=== PATIENT | male | born 2000 | race Two or more races ===

== ENCOUNTER 2020-01-25 16:17 | Inpatient (IN) | payer OTHER ==
[2020-01-25] MEDS: Lactated Ringers 1,000 ML IV SCH (17:20)
[2020-01-25] MEDS ORDERED: Ondansetron 4 MG/2 ML SDV IVPUSH ONE (18:00)
[2020-01-25] MEDS ORDERED: Ketorolac 30 MG/ML SDV IVPUSH ONE (18:00)
[2020-01-25] MEDS ORDERED: Citric Acid/Sodium Citrate Solution 30 ML Cup PO ONE (18:00)
[2020-01-25] MEDS ORDERED: Dexmedetomidine 200 MCG/2 ML SDV IV ONE (18:00)
[2020-01-25] MEDS ORDERED: Rocuronium 50 MG/5 ML Vial IV ONE (18:00)
[2020-01-25] MEDS ORDERED: fentaNYL 100 MCG/2 ML SDV IV ONE (18:00)
[2020-01-25] MEDS ORDERED: Glycopyrrolate 0.2 MG/ML 5 ML MDV IV ONE (18:00)
[2020-01-25] MEDS ORDERED: Succinylcholine 200 MG/10 ML MDV IV ONE (18:00)
[2020-01-25] MEDS ORDERED: Midazolam 1 MG/ML 2 ML SDV IV ONE (18:00)
[2020-01-25] MEDS ORDERED: Propofol 200 MG/20 ML SDV IV ONE (18:00)
[2020-01-25] MEDS ORDERED: Neostigmine Methylsulfate 10 MG/10 ML MDV IVPUSH ONE (18:00)
[2020-01-25] MEDS ORDERED: Lactated Ringers 1,000 ML IV ONE (18:00)
[2020-01-25] MEDS ORDERED: Bupivacaine 0.5% 30 ML SDV INJECT ONE (18:09)
[2020-01-25] MEDS ORDERED: Lidocaine 1% with EPINEPHrine 1:100,000 20 ML MDV INJECT ONE (18:10)
[2020-01-25] MEDS ORDERED: Ondansetron 4 MG/2 ML SDV IVPUSH PRN (19:08)
--- NOTE | 2020-01-25 19:23 | PCM.OPNOTE ---
- General Post-Op/Procedure Note Date of Surgery/Procedure: 01/25/20 Operative Procedure(s): lap appendectomy Findings: suppurative appendix Pre Op Diagnosis: acute appendicitis with localized peritonitis Post-Op Diagnosis: Same Anesthesia Technique: General ET Tube, Local (7 ml 1 % lido with epi/0.5% buvipicaine) Primary Surgeon: Iker De La O Anesthesia Provider: Trisha Walls Pathology: appendix Fluid Replacement, Intraop: 1,200 EBL in mLs: 25 Complications: some spillage of fecal material from the appendix. Condition: Good Free Text/Narrative:: see dictation #[id number]
[2020-01-25] MEDS: Ketorolac 30 MG/ML SDV IVPUSH SCH (20:20)
[2020-01-25] MEDS: Morphine 2 MG/ML SYRINGE IVPUSH PRN ×2 (20:50→22:44)
[2020-01-25] MEDS: Acetaminophen/HYDROcodone 325-5 MG Tab PO PRN (21:19)
[2020-01-26] MEDS: Morphine 2 MG/ML SYRINGE IVPUSH PRN ×7 (00:04→10:41)
[2020-01-26] MEDS: Ketorolac 30 MG/ML SDV IVPUSH SCH ×4 (01:22→19:03)
[2020-01-26] MEDS: Lactated Ringers 1,000 ML IV SCH ×3 (02:57→19:41)
[2020-01-26] MEDS: cefOXitin 1 GM Vial IVPUSH SCH ×4 (05:18→23:48)
--- NOTE | 2020-01-26 07:16 | OR ---
DATE OF OPERATION: 01/25/2020 SURGEON: Iker De La O MD PROCEDURE PERFORMED: Laparoscopic appendectomy. PREOPERATIVE DIAGNOSIS: Acute appendicitis with localized peritonitis. POSTOPERATIVE DIAGNOSIS: Acute appendicitis with localized peritonitis. INDICATIONS FOR PROCEDURE: This is a 19-year-old white male who is a student at the [employer], who apparently has sustained or experienced some abdominal pain in his lower abdomen for the past 5 days. Today, it got progressively worse to the point that he presented to the clinic. He was noted to have tenderness in the lower abdomen with rebound located over the right lower quadrant. He also had a mild leukocytosis of 12,000. On exam, it was felt that his findings were consistent with an acute appendicitis. He, therefore, was offered and accepted a laparoscopic appendectomy. INTRAOPERATIVE FINDINGS: A 7 mL of our local mixture was used. This was a 1:1 mixture of 1% lidocaine with epinephrine 0.5% bupivacaine. A suppurative appendix was noted with what appeared to be a fecalith located in the proximal area of the appendix. There was some mild spillage of the contents of the appendix as well during the case. This was all successfully irrigated. DESCRIPTION OF PROCEDURE: After an excellent general anesthetic was administered via endotracheal tube, the patient was prepped and draped in the usual sterile manner. Our local was used first infiltrate the area around the patient's umbilicus. A small vertical midline incision was then carried out. The midline fascia was exposed. Two stay sutures of 0 Vicryl were placed on either side of the midline fascia, which was then elevated. The midline was incised, and the abdominal cavity was entered. After digital palpation to ensure that there were no adhesions, a 10.5 mm Vinnie trocar was inserted into the patient's abdomen. The patient's abdomen was then insufflated to 15 mmHg, using carbon dioxide, and under direct visualization two 5 mm ports were placed one in the right lower quadrant at the proximal level of the anterior axillary line and one in the midline approximately 3 cm below the periumbilical port. This was done via a following technique; a full thickness infiltration of local was carried out. A stab incision was made through the skin, and the trocars were inserted into the abdomen. We were able to grab the cecum and mobilize the appendix, which was lying in the right colic gutter. It was markedly inflamed and had a diameter roughly of approximately 2 cm. In grasping the appendix at the base, there was a small rent made in the appendix and some liquid stool did escape. This was aspirated, and then there was an avulsion of what appeared to be a fecalith as well. We were able to grab and obtain the majority of this at this stage. A rent was then made in the mesoappendix. An Endo-BLANCA was inserted and a 3.5 mm 45 mm load was then fired across the base of the appendix. The mesoappendix was also divided using a similar load, and the appendix was then delivered into a specimen bag and delivered out through the periumbilical port. The area was irrigated and the remaining obvious contamination was obtained. On inspecting the staple line along the mesoappendiceal staple line, there were several small bleeding points, one at the distal most portion of the mesoappendix going from medial to lateral. Several clips were applied. Then on further inspection, there were several other points that required clip application, which resulted in cessation of the very slight oozing that was noted. On inspection of the staple line with the colon, at the base of the appendix, on one edge there was some slight oozing. We were able to place a suture line that ran parallel and did not cross the end of the sutures, and this basically occluded the edge and resulted in cessation of the slight oozing that was there as well. This was placed running parallel to the staple line to avoid any complications or necrosis of the staple line in its healing, and potential leak. A grand total of 3 L of LR were then used to irrigate the right colic gutter as well as the area lateral to the right hepatic lobe and also the pelvis received a full liter of irrigation as well of the total of 3 L. Careful inspection revealed no further evidence of any gross fecal contamination and our irrigant was clear by the second liter. The trocars were then removed under direct visualization, and the patient was flattened out. The [id number] 0 Vicryl was used to close the periumbilical port site. Additional figure-of- eights suture was placed on the superior aspect to ensure complete closure of our fascia. The skin was then closed with interrupted 4-0 Vicryl for the two 5 mm ports and a running subcu 4-0 Vicryl for the periumbilical port. Steri- Strips were applied. Needle, sponge, and instrument counts were reported as correct. The patient received approximately 1200 mL of crystal, and we estimated less than 25 mL of blood loss. /[id number] /MODL
[2020-01-26] MEDS ORDERED: Lactated Ringers 1,000 ML IV SCH (07:30)
--- NOTE | 2020-01-26 07:45 | PCM.SURGPN ---
- General Info Date of Service: 01/26/20 POD#: 1 Functional Status: Reports: Ambulating, Urinating ( ), Other (notes pain ) - Review of Systems General: Denies: Fever Pulmonary: Reports: No Symptoms Cardiovascular: Reports: No Symptoms Gastrointestinal: Reports: Abdominal Pain Skin: Reports: No Symptoms - Patient Data Vitals - Most Recent: Last Vital Signs Temp 98.6 F 01/26/20 04:00 Pulse 60 01/26/20 04:00 Resp 16 01/26/20 04:00 BP 94/46 L 01/26/20 04:00 Pulse Ox 98 01/26/20 04:00 Weight - Most Recent: 77.111 kg I&O - Last 24 Hours: Intake & Output 01/25/20 01/26/20 01/26/20 22:59 06:59 14:59 Intake Total 1200 1260 Output Total 550 Balance 1200 710 Lab Results Last 24 Hrs: Laboratory Results - last 24 hr 01/25/20 Range/Units 16:35 SARS-CoV-2 RNA (PAULINE) Negative (NEGATIVE) Med Orders - Current: Current Medications Hydrocodone Bitart/Acetaminophen ([place] 325-5 Mg) 2 tab PO Q4H PRN PRN Reason: Pain (moderate 4-6) Last Admin: 01/25/20 21:19 Dose: 2 tab Documented by: Cefoxitin Sodium (Mefoxin) 1 gm IVPUSH Q6H [facility] Last Admin: 01/26/20 05:18 Dose: 1 gm Documented by: Lactated Ringer's (Ringers, Lactated) 1,000 mls @ 125 mls/hr IV ASDIRECTED [facility] Last Admin: 01/26/20 02:57 Dose: 125 mls/hr Documented by: Lactated Ringer's (Ringers, Lactated) 1,000 mls @ 999 mls/hr IV ASDIRECTED [facility] Ketorolac Tromethamine (Toradol) 30 mg IVPUSH Q6H [facility] Stop: 01/30/20 19:11 Last Admin: 01/26/20 07:13 Dose: 30 mg Documented by: Morphine Sulfate (Morphine) 2 mg IVPUSH Q1H PRN PRN Reason: Pain (severe 7-10) Last Admin: 01/26/20 06:48 Dose: 2 mg Documented by: Ondansetron HCl (Zofran) 4 mg IVPUSH Q6H PRN PRN Reason: Nausea/Vomiting Discontinued Medications Bupivacaine HCl (Marcaine 0.5%) 10 ml INJECT .STK-MED ONE Stop: 01/25/20 18:10 Last Admin: 01/25/20 18:09 Dose: 10 ml Documented by: Cefoxitin Sodium 1 gm/ Sodium (Chloride) 50 mls @ 100 mls/hr IVPUSH ONETIME ONE Stop: 01/25/20 17:48 Last Admin: 01/25/20 17:26 Dose: 100 mls/hr Documented by: Cefoxitin Sodium 1 gm/ Sodium (Chloride) 50 mls @ 100 mls/hr IVPUSH Q6H [facility] Last Admin: 01/26/20 05:03 Dose: 100 mls/hr Documented by: Lidocaine/Epinephrine (Xylocaine 1% With Epinephrine 1:100,000) 10 ml INJECT .STK-MED ONE Stop: 01/25/20 18:11 Last Admin: 01/25/20 18:10 Dose: 10 ml Documented by: - Exam Wound/Incisions: Dressing Dry and Intact General: Alert, Oriented, Mild Distress Lungs: Clear to Auscultation, Normal Respiratory Effort Cardiovascular: Regular Rate, Regular Rhythm GI/Abdominal Exam: Normal Bowel Sounds, Soft, Tender Sepsis Event Note - Focused Exam Vital Signs: Vital Signs Temp Pulse Resp BP Pulse Ox Pulse Ox 01/26/20 04:00 98.6 F 60 16 94/46 L 98 01/26/20 01:52 100 01/26/20 01:30 98.9 F 88 16 117/51 L 100 01/26/20 00:00 98.3 F 88 16 106/49 L 96 01/25/20 22:00 69 16 93/43 L 97 01/25/20 21:30 68 16 90/36 L 98 01/25/20 21:00 66 16 94/40 L 98 01/25/20 20:45 62 16 113/57 L 100 01/25/20 20:30 55 L 16 108/51 L 99 01/25/20 20:15 53 L 16 115/56 L 99 01/25/20 20:00 51 L 16 126/60 100 01/25/20 19:45 98.2 F 51 L 16 123/62 99 01/25/20 19:37 50 L 12 112/56 L 100 - Problem List & Annotations (1) Acute appendicitis with localized peritonitis SNOMED Code(s): 905017664 Code(s): K35.30 - ACUTE APPENDICITIS WITH LOC PERITONITIS, W/O PERF OR GANGR Status: Acute Current Visit: Yes Qualifiers: Appendicitis gangrene presence: without gangrene Appendicitis perforation presence: unspecified whether perforation present Appendicitis abscess presence: without abscess Qualified Code(s): K35.30 - Acute appendicitis with localized peritonitis, without perforation or gangrene - Problem List Review Problem List Initiated/Reviewed/Updated: Yes - My Orders Last 24 Hours: Active Orders 24 hr Category Date Time Status Patient Status [ADT] Routine ADT 01/25/20 16:41 Active Ambulate [RC] .TID Care 01/25/20 19:08 Active Head of Bed Elevation [RC] ASDIRECTED Care 01/25/20 19:08 Active Oxygen Therapy [RC] PRN Care 01/25/20 19:08 Active RT Incentive Spirometry [RC] Q2HWA Care 01/25/20 19:08 Active Vital Signs [RC] Q4HR Care 01/25/20 19:08 Active Clear Liquid Diet [DIET] Diet 01/26/20 Breakfast Ordered CBC WITH AUTO DIFF [HEME] AM Lab 01/26/20 05:11 Ordered Acetaminophen/HYDROcodone [[place] 325-5 MG] Med 01/25/20 19:08 Active 2 tab PO Q4H PRN Ketorolac [Toradol] Med 01/25/20 19:15 Active 30 mg IVPUSH Q6H Lactated Ringers [Ringers, Lactated] 1,000 ml Med 01/25/20 16:45 Active IV ASDIRECTED Lactated Ringers [Ringers, Lactated] 1,000 ml Med 01/26/20 07:30 Ordered IV ASDIRECTED Morphine Med 01/25/20 19:08 Active 2 mg IVPUSH Q1H PRN Ondansetron [Zofran] Med 01/25/20 19:08 Active 4 mg IVPUSH Q6H PRN cefOXitin [Mefoxin] Med 01/26/20 05:00 Active 1 gm IVPUSH Q6H Resuscitation Status Routine Resus Stat 01/25/20 19:08 Ordered Medication Orders Hydrocodone Bitart/Acetaminophen ([place] 325-5 Mg) 2 tab PO Q4H PRN PRN Reason: Pain (moderate 4-6) Last Admin: 01/25/20 21:19 Dose: 2 tab Documented by: GLORIA Cefoxitin Sodium (Mefoxin) 1 gm IVPUSH Q6H [facility] Last Admin: 01/26/20 05:18 Dose: 1 gm Documented by: AREN Lactated Ringer's (Ringers, Lactated) 1,000 mls @ 125 mls/hr IV ASDIRECTED [facility] Last Admin: 01/26/20 02:57 Dose: 125 mls/hr Documented by: Infusion: 01/26/20 02:15 Dose: 125 mls/hr Documented by: Infusion: 01/25/20 19:45 Dose: 125 mls/hr Documented by: Admin: 01/25/20 17:20 Dose: 30 mls/hr Documented by: GLORIA Lactated Ringer's (Ringers, Lactated) 1,000 mls @ 999 mls/hr IV ASDIRECTED [facility] Ketorolac Tromethamine (Toradol) 30 mg IVPUSH Q6H [facility] Stop: 01/30/20 19:11 Last Admin: 01/26/20 07:13 Dose: 30 mg Documented by: Admin: 01/26/20 01:22 Dose: 30 mg Documented by: Admin: 01/25/20 20:20 Dose: Not Given Documented by: GLORIA Morphine Sulfate (Morphine) 2 mg IVPUSH Q1H PRN PRN Reason: Pain (severe 7-10) Last Admin: 01/26/20 06:48 Dose: 2 mg Documented by: Admin: 01/26/20 05:28 Dose: 2 mg Documented by: Admin: 01/26/20 04:15 Dose: 2 mg Documented by: Admin: 01/26/20 02:53 Dose: 2 mg Documented by: Admin: 01/26/20 01:15 Dose: 2 mg Documented by: Admin: 01/26/20 00:04 Dose: 2 mg Documented by: Admin: 01/25/20 22:44 Dose: 2 mg Documented by: Admin: 01/25/20 20:50 Dose: 2 mg Documented by: GLORIA Ondansetron HCl (Zofran) 4 mg IVPUSH Q6H PRN PRN Reason: Nausea/Vomiting - Assessment Assessment (Free Text/Narrative):: for 12 post op exam is unremarkable. - Plan Plan (Free Text/Narrative):: will give additional bolus ambulate. await cbc results.
[2020-01-26] MEDS: Acetaminophen/HYDROcodone 325-5 MG Tab PO PRN ×3 (13:52→23:50)
--- NOTE | 2020-01-26 16:25 | PCM.SN.2 ---
- Free Text/Narrative Note: still c/o of some abd pain. objective abd soft NO rebound, guarding incisional tenderness. Vitals are stable. clinically unremarkable exam plan pt encouraged to move and push po. case discussed with his mother.
[2020-01-26] MEDS ORDERED: Lidocaine 2% Jelly 30 ML Tube MUCMEM STA (22:27)
[2020-01-26] MEDS ORDERED: Bisacodyl 10 MG Supp RECTAL ONE (22:27)
--- NOTE | 2020-01-26 22:33 | PCM.SN.2 ---
- Free Text/Narrative Note: Due to patient discomfort we did proceed with a CT scan of abd and pelvis with oral contrast. CT scan was reviewed by me and discussed with [facility] radiologist. There is no evidence of any surgical issues and the over all appearance is that of a post op lap appendectomy. Of note is a distended bladder as well as a fair amount of stool in the cecum. This has the appearance of a neurogenic bladder. Plan a cantrell, ducolax suppository. Have talked with his mother as well as the patient the need of the cantrell.
[2020-01-26] MEDS ORDERED: Lidocaine 2% HCl 6 ML JEL.PF.APP ONE ×2 (22:48→22:52)
[2020-01-27] MEDS: Ketorolac 30 MG/ML SDV IVPUSH SCH ×2 (01:13→07:30)
[2020-01-27] MEDS: Lactated Ringers 1,000 ML IV SCH (03:44)
[2020-01-27] MEDS: cefOXitin 1 GM Vial IVPUSH SCH (05:47)
[2020-01-27] MEDS ORDERED: Sodium Phosphate,Monobasic/Sodium Phosphate,Dibasic Enema 133 ML Bottle RECTAL ONE (09:23)
--- NOTE | 2020-01-27 09:31 | PCM.SURGPN ---
- General Info Date of Service: 01/27/20 POD#: 2 Functional Status: Reports: Pain Controlled, Tolerating Diet, Urinating (cantrell in place for markedly distended bladder on CT scan ) - Review of Systems General: Reports: Appetite Pulmonary: Reports: No Symptoms Cardiovascular: Reports: No Symptoms Gastrointestinal: Reports: Abdominal Pain (markedly improved. ) Skin: Reports: No Symptoms - Patient Data Vitals - Most Recent: Last Vital Signs Temp 98.2 F 01/27/20 04:00 Pulse 68 01/27/20 04:00 Resp 16 01/27/20 04:00 BP 116/47 L 01/27/20 04:00 Pulse Ox 96 01/27/20 04:00 Weight - Most Recent: 77.111 kg I&O - Last 24 Hours: Intake & Output 01/26/20 01/27/20 01/27/20 22:59 06:59 14:59 Intake Total 1978 1010 Output Total 1600 900 Balance 378 110 Lab Results Last 24 Hrs: Laboratory Results - last 24 hr 01/27/20 Range/Units 07:00 WBC 9.4 (3.2-10.1) x10-3/uL RBC 4.02 (3.90-5.90) x10(6)uL Hgb 12.5 L (12.9-17.7) g/dL Hct 37.1 L (38.3-50.1) % MCV 92.4 (80.8-98.7) fL MCH 31.0 (27.0-33.3) pg MCHC 33.5 (28.7-35.3) g/dL RDW 12.8 (12.4-15.0) % Plt Count 226 (117-477) x10(3)uL MPV 7.2 (6.7-11.0) fL Neut % (Auto) 75.7 H (40.3-71.8) % Lymph % (Auto) 13.7 L (15.8-45.3) % Dawson % (Auto) 9.4 (5.5-15.2) % Eos % (Auto) 0.9 (0.1-6.8) % Baso % (Auto) 0.3 (0.3-3.8) % Neut # (Auto) 7.1 H (1.7-6.9) x10-3/uL Lymph # (Auto) 1.3 (0.5-4.5) x10-3/uL Dawson # (Auto) 0.9 (0.0-1.2) x10-3/uL Eos # (Auto) 0.1 (0.0-0.6) x10-3/uL Baso # (Auto) 0.0 (0.0-0.3) x10-3/uL Med Orders - Current: Current Medications Hydrocodone Bitart/Acetaminophen ([place] 325-5 Mg) 2 tab PO Q4H PRN PRN Reason: Pain (moderate 4-6) Last Admin: 01/26/20 23:50 Dose: 2 tab Documented by: Celecoxib (Celebrex) 200 mg PO BID [facility] Hydroxyzine Pamoate (Vistaril) 50 mg PO Q6H PRN PRN Reason: Abdominal Pain Last Admin: 01/26/20 19:53 Dose: 50 mg Documented by: Ondansetron HCl (Zofran) 4 mg IVPUSH Q6H PRN PRN Reason: Nausea/Vomiting Last Admin: 01/26/20 10:49 Dose: 4 mg Documented by: Sodium Biphosphate/Sodium Phosphate (Fleet Enema) 133 ml RECTAL ONETIME ONE Stop: 01/27/20 09:24 Discontinued Medications Bisacodyl (Dulcolax) 10 mg RECTAL ONETIME ONE Stop: 01/26/20 22:28 Last Admin: 01/26/20 22:56 Dose: 10 mg Documented by: Bupivacaine HCl (Marcaine 0.5%) 10 ml INJECT .STK-MED ONE Stop: 01/25/20 18:10 Last Admin: 01/25/20 18:09 Dose: 10 ml Documented by: Cefoxitin Sodium (Mefoxin) 1 gm IVPUSH Q6H [facility] Last Admin: 01/27/20 05:47 Dose: 1 gm Documented by: Lactated Ringer's (Ringers, Lactated) 1,000 mls @ 125 mls/hr IV ASDIRECTED [facility] Last Admin: 01/27/20 03:44 Dose: 125 mls/hr Documented by: Cefoxitin Sodium 1 gm/ Sodium (Chloride) 50 mls @ 100 mls/hr IVPUSH ONETIME ONE Stop: 01/25/20 17:48 Last Admin: 01/25/20 17:26 Dose: 100 mls/hr Documented by: Cefoxitin Sodium 1 gm/ Sodium (Chloride) 50 mls @ 100 mls/hr IVPUSH Q6H [facility] Last Admin: 01/26/20 07:53 Dose: Not Given Documented by: Lactated Ringer's (Ringers, Lactated) 1,000 mls @ 999 mls/hr IV ASDIRECTED [facility] Last Admin: 01/26/20 07:43 Dose: 999 mls/hr Documented by: Ketorolac Tromethamine (Toradol) 30 mg IVPUSH Q6H [facility] Stop: 01/30/20 19:11 Last Admin: 01/27/20 07:30 Dose: 30 mg Documented by: Lidocaine HCl (Xylocaine 2% Jelly) 6 ml MUCMEM NOW STA Stop: 01/26/20 22:28 Last Admin: 01/26/20 22:57 Dose: Not Given Documented by: Lidocaine HCl (Glydo) Confirm Administered Dose 6 ml .ROUTE .STK-MED ONE Stop: 01/26/20 22:49 Last Admin: 01/26/20 22:56 Dose: Not Given Documented by: Lidocaine HCl (Glydo) 6 ml .XX ONETIME ONE Stop: 01/26/20 22:53 Last Admin: 01/26/20 23:35 Dose: 6 ml Documented by: Lidocaine/Epinephrine (Xylocaine 1% With Epinephrine 1:100,000) 10 ml INJECT .STK-MED ONE Stop: 01/25/20 18:11 Last Admin: 01/25/20 18:10 Dose: 10 ml Documented by: Morphine Sulfate (Morphine) 2 mg IVPUSH Q1H PRN PRN Reason: Pain (severe 7-10) Last Admin: 01/26/20 10:41 Dose: 2 mg Documented by: - Exam Wound/Incisions: Healing Well, Dressing Dry and Intact General: Alert, Oriented, Cooperative, No Acute Distress Lungs: Clear to Auscultation, Normal Respiratory Effort Cardiovascular: Regular Rate, Regular Rhythm GI/Abdominal Exam: Normal Bowel Sounds, Soft, No Distention, Tender (over incisions much better exam than yesterday ) Skin: Warm, Dry, Intact Sepsis Event Note - Focused Exam Vital Signs: Vital Signs Temp Pulse Resp BP Pulse Ox 01/27/20 04:00 98.2 F 68 16 116/47 L 96 01/27/20 00:00 98.3 F 69 16 110/50 L 96 - Problem List & Annotations (1) Acute appendicitis with localized peritonitis SNOMED Code(s): 597396647 Code(s): K35.30 - ACUTE APPENDICITIS WITH LOC PERITONITIS, W/O PERF OR GANGR Status: Resolved Current Visit: Yes Qualifiers: Appendicitis gangrene presence: without gangrene Appendicitis perforation presence: unspecified whether perforation present Appendicitis abscess presence: without abscess Qualified Code(s): K35.30 - Acute appendicitis with localized peritonitis, without perforation or gangrene (2) Postoperative urinary retention SNOMED Code(s): 518950824 Code(s): N99.89 - OTH POSTPROCEDURAL COMPLICATIONS AND DISORDERS OF SYS; R33.8 - OTHER RETENTION OF URINE Status: Acute Current Visit: Yes - Problem List Review Problem List Initiated/Reviewed/Updated: Yes - My Orders Last 24 Hours: Active Orders 24 hr Category Date Time Status Insert Cantrell Catheter [Insert Urinary Catheter] [OM.PC] Care 01/26/20 22:30 Ordered Q24H Urinary Catheter Assessment [RC] QSHIFT Care 01/26/20 22:27 Active Regular Diet [DIET] Diet 01/27/20 Lunch Ordered Abdomen Pelvis wo Cont [CT] Routine Exams 01/26/20 21:14 Taken Celecoxib [CeleBREX] Med 01/27/20 09:30 Ordered 200 mg PO BID Na Phos,M-B/Na Phos,DI-B [Fleet Enema] Med 01/27/20 09:23 Once 133 ml RECTAL ONETIME ONE hydrOXYzine pamoate [Vistaril] Med 01/26/20 13:19 Active 50 mg PO Q6H PRN Convert IV to Saline Lock [OM.PC] Routine Oth 01/27/20 09:20 Ordered Medication Orders Hydrocodone Bitart/Acetaminophen ([place] 325-5 Mg) 2 tab PO Q4H PRN PRN Reason: Pain (moderate 4-6) Last Admin: 01/26/20 23:50 Dose: 2 tab Documented by: Admin: 01/26/20 19:52 Dose: 2 tab Documented by: Admin: 01/26/20 13:52 Dose: 2 tab Documented by: Admin: 01/25/20 21:19 Dose: 2 tab Documented by: GLORIA Celecoxib (Celebrex) 200 mg PO BID [facility] Hydroxyzine Pamoate (Vistaril) 50 mg PO Q6H PRN PRN Reason: Abdominal Pain Last Admin: 01/26/20 19:53 Dose: 50 mg Documented by: Admin: 01/26/20 13:52 Dose: 50 mg Documented by: KING Ondansetron HCl (Zofran) 4 mg IVPUSH Q6H PRN PRN Reason: Nausea/Vomiting Last Admin: 01/26/20 10:49 Dose: 4 mg Documented by: KING Sodium Biphosphate/Sodium Phosphate (Fleet Enema) 133 ml RECTAL ONETIME ONE Stop: 01/27/20 09:24 - Assessment Assessment (Free Text/Narrative):: Overall markedly better exam - Plan Plan (Free Text/Narrative):: saline lock iv's po pain meds will d/c toradol and go to celebrex. stop antibiotics as WBC is normal continue cantrell.
[2020-01-27] MEDS: Celecoxib 200 MG Cap PO SCH ×2 (10:11→22:43)
[2020-01-27] MEDS: Acetaminophen/HYDROcodone 325-5 MG Tab PO PRN ×2 (17:51→23:49)
[2020-01-28] MEDS: Acetaminophen/HYDROcodone 325-5 MG Tab PO PRN ×2 (05:55→10:31)
--- NOTE | 2020-01-28 09:10 | PCM.DCSUM1 ---
Discharge Summary - Discharge Data Discharge Date: 01/28/20 Discharge Disposition: Home, Self-Care 01 Condition: Good - Referral to Home Health Primary Care Physician: PCP None - Discharge Diagnosis/Problem(s) (1) Acute appendicitis with localized peritonitis SNOMED Code(s): 225198820 ICD Code: K35.30 - ACUTE APPENDICITIS WITH LOC PERITONITIS, W/O PERF OR GANGR Status: Resolved Current Visit: Yes Qualifiers: Appendicitis gangrene presence: without gangrene Appendicitis perforation presence: unspecified whether perforation present Appendicitis abscess presence: without abscess Qualified Code(s): K35.30 - Acute appendicitis with localized peritonitis, without perforation or gangrene (2) Postoperative urinary retention SNOMED Code(s): 601514475 ICD Code: N99.89 - OTH POSTPROCEDURAL COMPLICATIONS AND DISORDERS OF SYS; R33.8 - OTHER RETENTION OF URINE Status: Resolved Current Visit: Yes - Patient Summary/Data Operative Procedure(s) Performed: lap appendectomy Hospital Course: Pt underwent a lap appendectomy with removal of an inflamed appendix, with apparent fecalith. His post op course was notable for pt's perception of pain. This affected post operative ambulation. His pain was addressed with morphine, and iv toradol, this was converted to [place], vistaril as well as toradol on day one. Ambulation was encourage and he did so reluctantly. Vitals during this time were stable and he remained afebrile. Nursing continued to encourage ambulation through the day and did work with him. CT scan with oral contrast was obtained the evening of POD #1 to ensure no significant intrabdominal issue were present. Findings were consistent with post op state. He did have a significant amount of stool in the cecum, as well as a markedly distended bladder. Cantrell was placed with over a liter output noted. This was after a urination of 600 ml. The following morning POD#2. He was admitted due to the retention as he is a college student that lives [place] from the hospital. He did have a bowel movement during this time. IV was saline locked. Regular diet was started and he tolerated this. During these two days mother has been communicated with by myself and the nursing staff. The morning of POD#3 the cantrell has been d/cd. He will be discharged after he demonstrates the ability to urinate. - Patient Instructions Diet: Usual Diet as Tolerated Activity: No Lifting Over 25 Pounds (for 3 wks ) Driving: Do Not Drive (for 7 days ) Showering/Bathing: May Shower Wound/Incision, Other: allow steri strips to fall off Notify Provider of: Fever, Increased Pain - Discharge Plan *PRESCRIPTION DRUG MONITORING PROGRAM REVIEWED*: No *COPY OF PRESCRIPTION DRUG MONITORING REPORT IN PATIENT NATHAN: No Prescriptions/Med Rec: Celecoxib [CeleBREX] 200 mg PO BID #14 cap Acetaminophen/HYDROcodone [[place] 325-5 MG] 1 - 2 tab PO Q6H PRN #20 tab PRN Reason: Pain Home Medications: Home Meds cephALEXin [Cephalexin] 500 mg PO BID 01/25/20 [History] Acetaminophen/HYDROcodone [[place] 325-5 MG] 1 - 2 tab PO Q6H PRN #20 tab 01/27/20 [Rx] Celecoxib [CeleBREX] 200 mg PO BID #14 cap 01/27/20 [Rx] Referrals: Iker De La O MD [Physician] - (follow up in 7-10 days with me or with your local doctor for a post op check. ) - Discharge Summary/Plan Comment DC Time >30 min.: No - Patient Data Vitals - Most Recent: Last Vital Signs Temp 98.1 F 01/28/20 06:00 Pulse 59 L 01/28/20 06:00 Resp 16 01/28/20 06:00 BP 124/64 01/28/20 06:00 Pulse Ox 100 01/28/20 06:00 Weight - Most Recent: 77.111 kg I&O - Last 24 hours: Intake & Output 01/27/20 01/28/20 01/28/20 22:59 06:59 14:59 Intake Total 600 400 Output Total 950 650 Balance -350 -250 Med Orders - Current: Current Medications Hydrocodone Bitart/Acetaminophen ([place] 325-5 Mg) 2 tab PO Q4H PRN PRN Reason: Pain (moderate 4-6) Last Admin: 01/28/20 05:55 Dose: 2 tab Documented by: Celecoxib (Celebrex) 200 mg PO BID JEREMY Last Admin: 01/27/20 22:43 Dose: 200 mg Documented by: Hydroxyzine Pamoate (Vistaril) 50 mg PO Q6H PRN PRN Reason: Abdominal Pain Last Admin: 01/26/20 19:53 Dose: 50 mg Documented by: Ondansetron HCl (Zofran) 4 mg IVPUSH Q6H PRN PRN Reason: Nausea/Vomiting Last Admin: 01/26/20 10:49 Dose: 4 mg Documented by: Discontinued Medications Bisacodyl (Dulcolax) 10 mg RECTAL ONETIME ONE Stop: 01/26/20 22:28 Last Admin: 01/26/20 22:56 Dose: 10 mg Documented by: Bupivacaine HCl (Marcaine 0.5%) 10 ml INJECT .STK-MED ONE Stop: 01/25/20 18:10 Last Admin: 01/25/20 18:09 Dose: 10 ml Documented by: Cefoxitin Sodium (Mefoxin) 1 gm IVPUSH Q6H [facility] Last Admin: 01/27/20 05:47 Dose: 1 gm Documented by: Lactated Ringer's (Ringers, Lactated) 1,000 mls @ 125 mls/hr IV ASDIRECTED [facility] Last Admin: 01/27/20 03:44 Dose: 125 mls/hr Documented by: Cefoxitin Sodium 1 gm/ Sodium (Chloride) 50 mls @ 100 mls/hr IVPUSH ONETIME ONE Stop: 01/25/20 17:48 Last Admin: 01/25/20 17:26 Dose: 100 mls/hr Documented by: Cefoxitin Sodium 1 gm/ Sodium (Chloride) 50 mls @ 100 mls/hr IVPUSH Q6H [facility] Last Admin: 01/26/20 07:53 Dose: Not Given Documented by: Lactated Ringer's (Ringers, Lactated) 1,000 mls @ 999 mls/hr IV ASDIRECTED [facility] Last Admin: 01/26/20 07:43 Dose: 999 mls/hr Documented by: Ketorolac Tromethamine (Toradol) 30 mg IVPUSH Q6H [facility] Stop: 01/30/20 19:11 Last Admin: 01/27/20 07:30 Dose: 30 mg Documented by: Lidocaine HCl (Xylocaine 2% Jelly) 6 ml MUCMEM NOW STA Stop: 01/26/20 22:28 Last Admin: 01/26/20 22:57 Dose: Not Given Documented by: Lidocaine HCl (Glydo) Confirm Administered Dose 6 ml .ROUTE .STK-MED ONE Stop: 01/26/20 22:49 Last Admin: 01/26/20 22:56 Dose: Not Given Documented by: Lidocaine HCl (Glydo) 6 ml .XX ONETIME ONE Stop: 01/26/20 22:53 Last Admin: 01/26/20 23:35 Dose: 6 ml Documented by: Lidocaine/Epinephrine (Xylocaine 1% With Epinephrine 1:100,000) 10 ml INJECT .STK-MED ONE Stop: 01/25/20 18:11 Last Admin: 01/25/20 18:10 Dose: 10 ml Documented by: Morphine Sulfate (Morphine) 2 mg IVPUSH Q1H PRN PRN Reason: Pain (severe 7-10) Last Admin: 01/26/20 10:41 Dose: 2 mg Documented by: Sodium Biphosphate/Sodium Phosphate (Fleet Enema) 133 ml RECTAL ONETIME ONE Stop: 01/27/20 09:24 Last Admin: 01/27/20 12:08 Dose: 133 ml Documented by:
--- NOTE | 2020-01-28 09:12 | PCM.SURGPN ---
- General Info Date of Service: 01/28/20 POD#: 3 Functional Status: Reports: Pain Controlled, Tolerating Diet, Ambulating, Other (cantrell was removed at 0600. has been sleeping since and has yet to urinate. ) - Review of Systems General: Reports: No Symptoms Pulmonary: Reports: No Symptoms Cardiovascular: Reports: No Symptoms Gastrointestinal: Reports: Flatus - Patient Data Vitals - Most Recent: Last Vital Signs Temp 98.1 F 01/28/20 06:00 Pulse 59 L 01/28/20 06:00 Resp 16 01/28/20 06:00 BP 124/64 01/28/20 06:00 Pulse Ox 100 01/28/20 06:00 Weight - Most Recent: 77.111 kg I&O - Last 24 Hours: Intake & Output 01/27/20 01/28/20 01/28/20 22:59 06:59 14:59 Intake Total 600 400 Output Total 950 650 Balance -350 -250 Med Orders - Current: Current Medications Hydrocodone Bitart/Acetaminophen ([place] 325-5 Mg) 2 tab PO Q4H PRN PRN Reason: Pain (moderate 4-6) Last Admin: 01/28/20 05:55 Dose: 2 tab Documented by: Celecoxib (Celebrex) 200 mg PO BID JEREMY Last Admin: 01/27/20 22:43 Dose: 200 mg Documented by: Hydroxyzine Pamoate (Vistaril) 50 mg PO Q6H PRN PRN Reason: Abdominal Pain Last Admin: 01/26/20 19:53 Dose: 50 mg Documented by: Ondansetron HCl (Zofran) 4 mg IVPUSH Q6H PRN PRN Reason: Nausea/Vomiting Last Admin: 01/26/20 10:49 Dose: 4 mg Documented by: Discontinued Medications Bisacodyl (Dulcolax) 10 mg RECTAL ONETIME ONE Stop: 01/26/20 22:28 Last Admin: 01/26/20 22:56 Dose: 10 mg Documented by: Bupivacaine HCl (Marcaine 0.5%) 10 ml INJECT .STK-MED ONE Stop: 01/25/20 18:10 Last Admin: 01/25/20 18:09 Dose: 10 ml Documented by: Cefoxitin Sodium (Mefoxin) 1 gm IVPUSH Q6H J[facility] Last Admin: 01/27/20 05:47 Dose: 1 gm Documented by: Lactated Ringer's (Ringers, Lactated) 1,000 mls @ 125 mls/hr IV ASDIRECTED [facility] TO [facility] Last Admin: 01/27/20 03:44 Dose: 125 mls/hr Documented by: Cefoxitin Sodium 1 gm/ Sodium (Chloride) 50 mls @ 100 mls/hr IVPUSH ONETIME ONE Stop: 01/25/20 17:48 Last Admin: 01/25/20 17:26 Dose: 100 mls/hr Documented by: Cefoxitin Sodium 1 gm/ Sodium (Chloride) 50 mls @ 100 mls/hr IVPUSH Q6H [facility] Last Admin: 01/26/20 07:53 Dose: Not Given Documented by: Lactated Ringer's (Ringers, Lactated) 1,000 mls @ 999 mls/hr IV ASDIRECTED [facility] Last Admin: 01/26/20 07:43 Dose: 999 mls/hr Documented by: Ketorolac Tromethamine (Toradol) 30 mg IVPUSH Q6H [facility] Stop: 01/30/20 19:11 Last Admin: 01/27/20 07:30 Dose: 30 mg Documented by: Lidocaine HCl (Xylocaine 2% Jelly) 6 ml MUCMEM NOW STA Stop: 01/26/20 22:28 Last Admin: 01/26/20 22:57 Dose: Not Given Documented by: Lidocaine HCl (Glydo) Confirm Administered Dose 6 ml .ROUTE .STK-MED ONE Stop: 01/26/20 22:49 Last Admin: 01/26/20 22:56 Dose: Not Given Documented by: Lidocaine HCl (Glydo) 6 ml .XX ONETIME ONE Stop: 01/26/20 22:53 Last Admin: 01/26/20 23:35 Dose: 6 ml Documented by: Lidocaine/Epinephrine (Xylocaine 1% With Epinephrine 1:100,000) 10 ml INJECT .STK-MED ONE Stop: 01/25/20 18:11 Last Admin: 01/25/20 18:10 Dose: 10 ml Documented by: Morphine Sulfate (Morphine) 2 mg IVPUSH Q1H PRN PRN Reason: Pain (severe 7-10) Last Admin: 01/26/20 10:41 Dose: 2 mg Documented by: Sodium Biphosphate/Sodium Phosphate (Fleet Enema) 133 ml RECTAL ONETIME ONE Stop: 01/27/20 09:24 Last Admin: 01/27/20 12:08 Dose: 133 ml Documented by: - Exam Wound/Incisions: Healing Well, Dressing Dry and Intact General: Alert, Cooperative Lungs: Clear to Auscultation, Normal Respiratory Effort Cardiovascular: Regular Rate, Regular Rhythm GI/Abdominal Exam: Normal Bowel Sounds, Tender (over incisions ). No: Rebound Sepsis Event Note - Focused Exam Vital Signs: Vital Signs Temp Pulse Resp BP Pulse Ox 01/28/20 06:00 98.1 F 59 L 16 124/64 100 01/28/20 01:00 97.9 F 64 16 114/64 96 - Problem List & Annotations (1) Acute appendicitis with localized peritonitis SNOMED Code(s): 248241579 Code(s): K35.30 - ACUTE APPENDICITIS WITH LOC PERITONITIS, W/O PERF OR GANGR Status: Resolved Current Visit: Yes Qualifiers: Appendicitis gangrene presence: without gangrene Appendicitis perforation presence: unspecified whether perforation present Appendicitis abscess presence: without abscess Qualified Code(s): K35.30 - Acute appendicitis with localized peritonitis, without perforation or gangrene (2) Postoperative urinary retention SNOMED Code(s): 398044700 Code(s): N99.89 - OTH POSTPROCEDURAL COMPLICATIONS AND DISORDERS OF SYS; R33.8 - OTHER RETENTION OF URINE Status: Resolved Current Visit: Yes - Problem List Review Problem List Initiated/Reviewed/Updated: Yes - My Orders Last 24 Hours: Active Orders 24 hr Category Date Time Status Admission Status [Patient Status] [ADT] Routine ADT 01/27/20 09:46 Active May Shower [RC] ASDIRECTED Care 01/28/20 08:49 Active Ready for Discharge [RC] PER UNIT ROUTINE Care 01/28/20 08:49 Active Remove Cantrell Catheter [Urinary Catheter Removal] [RC] Care 01/28/20 06:00 Active PER UNIT ROUTINE Regular Diet [DIET] Diet 01/27/20 Lunch Ordered Celecoxib [CeleBREX] Med 01/27/20 09:30 Active 200 mg PO BID Convert IV to Saline Lock [OM.PC] Routine Oth 01/27/20 09:20 Ordered Medication Orders Hydrocodone Bitart/Acetaminophen ([place] 325-5 Mg) 2 tab PO Q4H PRN PRN Reason: Pain (moderate 4-6) Last Admin: 01/28/20 05:55 Dose: 2 tab Documented by: Admin: 01/27/20 23:49 Dose: 2 tab Documented by: Admin: 01/27/20 17:51 Dose: 2 tab Documented by: Admin: 01/26/20 23:50 Dose: 2 tab Documented by: Admin: 01/26/20 19:52 Dose: 2 tab Documented by: Admin: 01/26/20 13:52 Dose: 2 tab Documented by: Admin: 01/25/20 21:19 Dose: 2 tab Documented by: GLORIA Celecoxib (Celebrex) 200 mg PO BID JEREMY Last Admin: 01/27/20 22:43 Dose: 200 mg Documented by: Admin: 01/27/20 10:11 Dose: 200 mg Documented by: KING Hydroxyzine Pamoate (Vistaril) 50 mg PO Q6H PRN PRN Reason: Abdominal Pain Last Admin: 01/26/20 19:53 Dose: 50 mg Documented by: Admin: 01/26/20 13:52 Dose: 50 mg Documented by: KING Ondansetron HCl (Zofran) 4 mg IVPUSH Q6H PRN PRN Reason: Nausea/Vomiting Last Admin: 01/26/20 10:49 Dose: 4 mg Documented by: KING - Assessment Assessment (Free Text/Narrative):: ready for discharge
[2020-01-28] MEDS: Celecoxib 200 MG Cap PO SCH (09:31)
== END 2020-01-28 10:45 | disposition home or self-care (01) | DRG 343 ==
LOC: FB.SDS 16:17 → FB.MS 20:48 → FB.SDS 01-27 09:45 → FB.MS 01-27 09:46
PROVIDERS: ADMIT Family Medicine; ATTEND Surgery
PROC: 0DTJ4ZZ Resection of Appendix, Percutaneous Endoscopic Approach (ICD-10-PCS; principal; 2020-01-27)
DX: K35.30 Acute appendicitis with localized peritonitis, without perforation or gangrene (principal); N99.89 Other postprocedural complications and disorders of genitourinary system; R33.8 Other retention of urine; Z20.828 Contact with and (suspected) exposure to other viral communicable diseases
CPT/HCPCS: 00840-QZ; 36415; 51702; 74176; 85025; 94150; A9270-GY; J0330; J0694; J1885; J2250; J2270; J2405; J2704; J2710; J3010; J3490; J7120; U0002